=== PATIENT | female | born 1940 | race Caucasian/White ===

== ENCOUNTER 2021-08-18 12:36 | Observation (INO) | payer OTHER, BC ==
[2021-08-18 13:26] LABS: Absolute Lymphocytes (CBC) 0.8 K/uL (0.7-4.9); Basophils % 0.9 % (0-1.3); Hematocrit 36.2 % (36.0-45.0); Lymphocytes % 9.3 % (15.3-44.8); MPV 10.5 fL (7.6-11.3); RBC Red Blood Cell Count 4.24 M/uL (3.86-4.86)
--- NOTE | 2021-08-18 13:38 | RAD REPORT ---
EXAM DESCRIPTION: RAD - Chest Single View - 08/18/2021 1:32 pm CLINICAL HISTORY: CONGESTION Chest pain. COMPARISON: No comparisons FINDINGS: Portable technique limits examination quality. Mild interstitial opacities bilaterally could indicate a viral infection. The heart is normal in size . No displaced fractures.
[2021-08-18 13:43] LABS: Urine Blood 2+ (Negative); Urine Glucose Negative (Negative); Urine Protein 1+ (Negative)
[2021-08-18 13:47] LABS: Albumin 3.1 g/dL (3.4-5.0); Bilirubin Direct 0.4 mg/dL (0-0.2); Bilirubin Total 1.2 mg/dL (0.2-1.0); Potassium 3.6 mmol/L (3.5-5.1); Protein, Total 6.8 g/dL (6.4-8.2); Troponin (Emerg Dept Use Only) 0.04 ng/mL (0.0-0.045)
--- NOTE | 2021-08-18 13:48 | RAD REPORT ---
EXAM DESCRIPTION: CT - Head Brain Wo Cont - 08/18/2021 1:35 pm CLINICAL HISTORY: WEAKNESS Headache, drowsiness COMPARISON: No comparisons TECHNIQUE: All CT scans are performed using dose optimization technique as appropriate and may inclu de automated exposure control or mA/KV adjustment according to patient size. FINDINGS: No intracranial hemorrhage, hydrocephalus or extra-axial fluid collection.Moderate general ized brain atrophy is present with moderate periventricular and deep white matter chronic microvascul ar ischemic changes.No areas of brain edema or evidence of midline shift. Mild thickening of the right maxillary antrum. Paranasal sinuses and mastoids otherwise clear. The ca lvarium is intact. IMPRESSION: No acute intracranial abnormality.
[2021-08-18] MEDS ORDERED: WATER FOR INJ,STERILE 10 ML ONE (14:03)
[2021-08-18] MEDS ORDERED: CEFTRIAXONE 1000 MG/VIAL ONE (14:06)
[2021-08-18] MEDS ORDERED: NA CHLORIDE 0.9% 1,000 ML ONE (14:08)
--- NOTE | 2021-08-18 14:28 | ER ---
Nurse's Notes [facility] Name: Naz Palmer Age: 81 yrs Sex: Female : 1940 Arrival Date: 08/18/2021 Time: 12:37 Bed 16 Private MD: Diagnosis: Acute cystitis;Weakness-generalized weakness, unable to walk Presentation: 08/18 12:42 Chief complaint: Patient states: Fall this morning from standing position. Denies ss injury, but was unable to get up and after hours of trying was finally able to scoot to a phone to call for help. PT reports she just feels generally weak/ fatigue. Coronavirus screen: Client denies travel out of the [place] in the last 14 days. Ebola Screen: Patient denies exposure to infectious person. Patient denies travel to an Ebola-affected area in the 21 days before illness onset. Initial Sepsis Screen: Does the patient meet any 2 criteria? No. Patient's initial sepsis screen is negative. Does the patient have a suspected source of infection? No. Patient's initial sepsis screen is negative. Risk Assessment: Do you want to hurt yourself or someone else? Patient reports no desire to harm self or others. Onset of symptoms was August 18, 2021. 12:42 Acuity: CARLA 3 ss 12:42 Method Of Arrival: EMS: [facility] ss Historical: - Allergies: 12:47 Codeine; ss 12:47 GABAPENTIN; ss - Immunization history:: Client reports receiving the 2nd dose of the Covid vaccine. - Social history:: Smoking status: Patient denies any tobacco usage or history of. Patient/guardian denies using alcohol, street drugs, The patient lives with family. - Family history:: not pertinent. Screenin:29 Fall Risk Fall in past 12 months (25 points). kd3 Assessment: 13:29 Pain: Complains of pain in chest, abdomen, left arm, right leg and back Quality of pain kd3 is described as aching. Neuro: Level of Consciousness is awake, alert, obeys commands, Oriented to person, place, time, situation, Care Attendant are equal bilaterally Moves all extremities. Gait is unsteady, Speech is normal, Facial symmetry appears normal, Pupils are PERRLA, Intact Reports headache weakness. 17:16 Reassessment: Per lexus Alexis for patient to take home medication of 0.5mg of kd3 Clonazapam for restless leg syndrome. nurse practitioner adult Niurka notified. 18:11 Reassessment: Per hai Alexis for patient to take Requip 2x 4mg and a Noco jt3 10mg-325mg tablet. These are the patient's home medications. 19:23 Reassessment: RN to RN report given to [place]. Pt. transported to [facility] by tech [address] . Vital Signs: 12:42 BP 142 / 75; Pulse 75; Resp 16; Temp 98.0(O); Pulse Ox 100% on R/A; Weight 77.11 kg; ss Height 5 ft. 0 in. (152.40 cm); Pain 0/10; 15:38 BP 153 / 64; Pulse 65; Resp 17; Pulse Ox 100% on R/A; kd3 18:11 BP 170 / 88; Pulse 83; Resp 17; Pulse Ox 98% on R/A; jt3 12:42 Body Mass Index 33.20 (77.11 kg, 152.40 cm) ED Course: 12:37 Patient arrived in ED. ds1 12:47 Triage completed. ss 12:47 Jelly Holden MD is Attending Physician. ma2 12:47 Arm band placed on right wrist. ss 12:51 Reymundo Sullivan, CELESTINE is Primary Nurse. jt3 13:29 Bed in low position. Call light in reach. Side rails up X2. kd3 13:29 Inserted saline lock: 20 gauge in right antecubital area, using aseptic technique. kd3 13:32 Chest Single View XRAY In Process Unspecified. EDMS 13:35 CT Head Brain wo Cont In Process Unspecified. EDMS 14:27 Theo Queen DO is Hospitalizing Provider. ma2 Administered Medications: 14:15 Drug: NS 0.9% 1000 ml Route: IV; Rate: 1 bolus; Site: right antecubital; kd3 14:15 Drug: Rocephin (cefTRIAXone) 1 grams Route: IV; Rate: calculated rate; Site: right kd3 antecubital; Output: 17:23 Urine: 100ml (Voided); Total: 100ml. kd3 Outcome: 14:27 Decision to Hospitalize by Provider. ma2 19:28 Admitted to [facility]/surg accompanied by tech, via stretcher. jt3 19:28 Condition: stable 19:28 Instructed on the need for admit. 19:29 Patient left the ED. jt3 Signatures: Dispatcher [employer] Anupama Romo1 Niurka Berry RN RN Jelly Ritter MD MD ma2 Reymundo Sullivan RN RN jt3 Alissa De Leon 3 Corrections: (The following items were deleted from the chart) 12:49 12:42 Method Of Arrival: Ambulatory [facility]
--- NOTE | 2021-08-18 14:28 | EDPHYS ---
Physician Documentation [facility] Name: Naz Palmer Age: 81 yrs Sex: Female : 1940 Arrival Date: 08/18/2021 Time: 12:37 Bed 16 Private MD: ED Physician Jelly Holden HPI: 08/18 13:21 This 81 yrs old Female presents to ER via EMS with complaints of General ma2 Weakness. 13:21 Onset: The symptoms/episode began/occurred gradually, 1 day(s) ago. Severity of ma2 symptoms: At their worst the symptoms were moderate in the emergency department the symptoms are unchanged. The patient has not experienced similar symptoms in the past. Historical: - Allergies: 12:47 Codeine; ss 12:47 GABAPENTIN; ss - Immunization history:: Client reports receiving the 2nd dose of the Covid vaccine. - Social history:: Smoking status: Patient denies any tobacco usage or history of. Patient/guardian denies using alcohol, street drugs, The patient lives with family. - Family history:: not pertinent. ROS: 13:21 Constitutional: Negative for fever, chills, and weight loss. ma2 13:21 All other systems are negative. Exam: 13:21 Constitutional: This is a well developed, well nourished patient who is awake, alert, ma2 and in no acute distress. Head/Face: Normocephalic, atraumatic. Eyes: Pupils equal round and reactive to light, extra-ocular motions intact. Lids and lashes normal. Conjunctiva and sclera are non-icteric and not injected. Cornea within normal limits. Periorbital areas with no swelling, redness, or edema. ENT: Nares patent. No nasal discharge, no septal abnormalities noted. Tympanic membranes are normal and external auditory canals are clear. Oropharynx with no redness, swelling, or masses, exudates, or evidence of obstruction, uvula midline. Mucous membranes moist. Neck: Trachea midline, no thyromegaly or masses palpated, and no cervical lymphadenopathy. Supple, full range of motion without nuchal rigidity, or vertebral point tenderness. No Meningismus. Chest/axilla: Normal chest wall appearance and motion. Nontender with no deformity. No lesions are appreciated. Cardiovascular: Regular rate and rhythm with a normal S1 and S2. No gallops, murmurs, or rubs. Normal PMI, no JVD. No pulse deficits. Respiratory: Lungs have equal breath sounds bilaterally, clear to auscultation and percussion. No rales, rhonchi or wheezes noted. No increased work of breathing, no retractions or nasal flaring. Abdomen/GI: Soft, non-tender, with normal bowel sounds. No distension or tympany. No guarding or rebound. No evidence of tenderness throughout. Back: No spinal tenderness. No costovertebral tenderness. Full range of motion. Skin: Warm, dry with normal turgor. Normal color with no rashes, no lesions, and no evidence of cellulitis. MS/ Extremity: Pulses equal, no cyanosis. Neurovascular intact. Full, normal range of motion. Neuro: Awake and alert, GCS 15, oriented to person, place, time, and situation. Cranial nerves II-XII grossly intact. Motor strength 5/5 in all extremities. Sensory grossly intact. Cerebellar exam normal. Normal gait. Vital Signs: 12:42 BP 142 / 75; Pulse 75; Resp 16; Temp 98.0(O); Pulse Ox 100% on R/A; Weight 77.11 kg; ss Height 5 ft. 0 in. (152.40 cm); Pain 0/10; 15:38 BP 153 / 64; Pulse 65; Resp 17; Pulse Ox 100% on R/A; kd3 18:11 BP 170 / 88; Pulse 83; Resp 17; Pulse Ox 98% on R/A; jt3 12:42 Body Mass Index 33.20 (77.11 kg, 152.40 cm) MDM: 12:50 [facility]. [facility] 13:21 Differential Diagnosis sepsis, flu, uti. ar2 14:26 Data reviewed: vital signs, nurses notes. Counseling: I had a detailed discussion with ma2 the patient and/or guardian regarding: the historical points, exam findings, and any diagnostic results supporting the discharge/admit diagnosis, the presence of at least one elevated blood pressure reading (>120/80) during this emergency department visit, the need for further work-up and treatment in the hospital. Response to treatment: the patient's symptoms have markedly improved after treatment. 08/18 12:49 Order name: Basic Metabolic Panel; Complete Time: 13:49 [facility] 08/18 12:49 Order name: CBC with Diff; Complete Time: 13:49 ar2 08/18 12:49 Order name: Hepatic Function; Complete Time: 13:49 [facility] 08/18 12:49 Order name: Lipase; Complete Time: 13:49 [facility] 08/18 12:49 Order name: Blood Culture Adult (2) [facility] 08/18 12:49 Order name: Troponin (emerg Dept Use Only); Complete Time: 13:49 [facility] 08/18 12:49 Order name: CT Head Brain wo Cont; Complete Time: 14:25 [facility] 08/18 12:49 Order name: Chest Single View XRAY; Complete Time: 13:49 [facility] 08/18 13:28 Order name: COVID-19 (Coronavirus) Document "Date of Onset" if Symptomatic ss 08/18 13:42 Order name: Urine Dipstick-Ancillary; Complete Time: 13:49 [facility] 08/18 14:21 Order name: SARS-COV-2 RT PCR [facility] 08/18 14:26 Order name: Procalcitonin [facility] 08/18 12:49 Order name: IV Saline Lock; Complete Time: 13:35 [facility] 08/18 12:49 Order name: Labs collected and sent; Complete Time: 13:35 [facility] 08/18 12:49 Order name: Urine Dipstick-Ancillary (obtain specimen); Complete Time: 13:58 [facility] 08/18 12:49 Order name: EKG - Nurse/Tech; Complete Time: 13:34 [facility] Administered Medications: 14:15 Drug: NS 0.9% 1000 ml Route: IV; Rate: 1 bolus; Site: right antecubital; kd3 14:15 Drug: Rocephin (cefTRIAXone) 1 grams Route: IV; Rate: calculated rate; Site: right kd3 antecubital; Disposition Summary: 08/18/21 14:27 Hospitalization Ordered Hospitalization Status: Observation ma2 Provider: Theo Queen ma2 Location: Telemetry/MedSurg (observation) ma2 Condition: Stable ma2 Problem: new ma2 Symptoms: are unchanged ma2 Bed/Room Type: Standard [facility] Room Assignment: 201(08/18/21 18:22) bd Diagnosis - Acute cystitis ma2 - Weakness - generalized weakness, unable to walk ma2 Forms: - Medication Reconciliation Form ma2 - SBAR form ma2 Signatures: Dispatcher [employer] EDMS Annamarie Chavez Shelby, RN RN ss Jelly Holden MD MD ar2 Alissa De Leon kd3 Corrections: (The following items were deleted from the chart) 14: 13:29 CORONAVIRUS ordered. EDMS EDMS 18:22 14:27 arMaryjane bd
--- NOTE | 2021-08-18 14:57 | P.HP ---
Certification for Inpatient Patient admitted to: Observation With expected LOS: <2 Midnights Patient will require the following post-hospital care: None Practitioner: I am a practitioner with admitting privileges, knowledge of patient current condition, hospital course, and medical plan of care. Services: Services provided to patient in accordance with Admission requirements found in Title 42 Section 412.3 of the Code of Federal Regulations Patient History Date of Service: 08/18/21 Primary Care Provider: Dr. Ybarra([place], [place]) Reason for admission: Weakness History of Present Illness: 81-year-old female with history of atrial fibrillation on chronic anticoagulation therapy, restless leg syndrome, neuropathy, diabetes mellitus type 2, hypertension, hyperlipidemia, and GERD. Patient [place] the area on [place]. Patient has been fishing. Her activities have been increased recently. She went to the bathroom late last night around midnight. She apparently fell was not able to get up. She crawled around throughout the night. She was able to get in contact with her daughter. She denied any fever, chills, chest pain or shortness of breath. No respiratory issues noted. She came to the ER for further evaluation. In the ER patient was evaluated. Vital signs stable. White count 8.9, hemoglobin 11.8. Platelet count 140, sodium 145, potassium 3.6. BUN of 21, creatinine 0.72 with a GFR 78. Glucose 124. Troponin [address] head unremarkable. Chest x-ray showed possible viral pneumonia. Urinalysis showed some leukoesterase. Patient was admitted for observation. Patient is vaccinated for Covid. Home medications list reviewed: Yes - Past Medical/Surgical History Diabetic: Yes -: Diabetes mellitus type 2 -: Hypertension -: Hyperlipidemia -: Atrial fibrillation on chronic anticoagulation therapy -: Restless leg syndrome -: Diabetic neuropathy -: Chronic pain -: Hysterectomy -: Back surgery -: Knee surgeries Psychosocial/ Personal History: Patient is a . She is currently on vacation. - Family History Family History: Reviewed- Non-Contributory - Social History Smoking Status: Never smoker Alcohol use: Yes CD- Drugs: No Caffeine use: Yes Place of Residence: Home Review of Systems General: Weakness, Malaise, As per HPI Eyes: Unremarkable ENT: Unremarkable Respiratory: Unremarkable Cardiovascular: Unremarkable Gastrointestinal: Unremarkable Genitourinary: Unremarkable Musculoskeletal: As per HPI Integumentary: Unremarkable Neurological: Weakness, As per HPI Lymphatics: Unremarkable Physical Examination - Studies Laboratory Data (last 24 hrs) 08/18/21 13:12: WBC 8.90, Hgb 11.8 L, Hct 36.2, Plt Count 140 L 08/18/21 13:12: Sodium 145, Potassium 3.6, BUN 21 H, Creatinine 0.72, Glucose 124 H, Total Bilirubin 1.2 H, AST 37, ALT 33, Alkaline Phosphatase 53, Lipase 73 Assessment and Plan - Plan COVID: Pending CT head: COMPARISON: No comparisons TECHNIQUE: All CT scans are performed using dose optimization technique as appropriate and may include automated exposure control or mA/KV adjustment according to patient size. FINDINGS: No intracranial hemorrhage, hydrocephalus or extra-axial fluid collection.Moderate generalized brain atrophy is present with moderate periventricular and deep white matter chronic microvascular ischemic changes.No areas of brain edema or evidence of midline shift. Mild thickening of the right maxillary antrum. Paranasal sinuses and mastoids otherwise clear. The calvarium is intact. IMPRESSION: No acute intracranial abnormality. Chest x-ray: COMPARISON: No comparisons FINDINGS: Portable technique limits examination quality. Mild interstitial opacities bilaterally could indicate a viral infection. The heart is normal in size. No displaced fractures. Physical Exam: GENERAL: The patient is a well-developed, well-nourished, in no apparent dist ress. Alert and oriented x3. VITAL SIGNS: Reviewed HEENT: Head is normocephalic and atraumatic. Extraocular muscles are intact. Pupils are equal, round, and reactive to light and accommodation. Nares appeared normal. Mouth is well hydrated and without lesions. Mucous membranes are moist. NECK: Supple. No carotid bruits. No lymphadenopathy or thyromegaly. LUNGS: Clear to auscultation. No crackles or wheezes are heard. HEART: Regular rate and rhythm, no appreciable gallops, rubs, murmurs or extra heart sounds ABDOMEN: Soft, nontender, and nondistended. Positive bowel sounds. No hepatosplenomegaly was noted. EXTREMITIES: Without any cyanosis, clubbing, rash, lesions or peripheral edema. NEUROLOGIC: The patient is oriented to person, place and time. Strength and sensation are grossly intact. Face is symmetric. SKIN: Normal color, turgor and temperature. No ulcerations or rashes noted. Impression: Weakness with fall suspect mild dehydration with possible bilateral viral pneumonia Chronic atrial fibrillation on anticoagulation therapy Hypertension Hyperlipidemia Diabetes mellitus type 2 [id number]-aagsksknw Diabetic neuropathy Restless leg syndrome Chronic pain Plan: Weakness with fall suspect mild dehydration with possible bilateral viral pneumonia: Patient will be admitted for further evaluation and treatment. We will start Rocephin and Zithromax. Maintain oxygen above 93%. Continue IV fluids. Encourage oral intake. Will have physical therapy assess ambulation tomorrow. Will obtain Covid test. Will obtain procalcitonin. Will also check influenza test. Will monitor cardiac enzymes and telemetry. Anticipate improvement over the next 24 hours. Chronic atrial fibrillation on anticoagulation therapy: Continue with home medication amiodarone 200 mg daily and Eliquis 5 mg 1 pill twice daily. Will monitor cardiac enzymes and telemetry. Hypertension: Continue with carvedilol 12.5 mg 1 pill twice daily with parameters in place. Patient also takes olmesartan 10 mg every other day. Hyperlipidemia: Continue with Zetia 10 mg daily and Zocor 40 mg daily Diabetes mellitus type 2 [id number]-swbepcvoc: Will check hemoglobin A1c. Accu-Cheks in place. Sliding scale in place. Continue with Metformin at 1000 mg 1 pill twice daily. Hold Januvia 100 mg daily. Diabetic neuropathy: Continue Lyrica 200 mg 1 pill 3 times a day Restless leg syndrome: Continue Requip 4 mg at bedtime Chronic pain: Continue hydrocodone as needed. Code Status: Full Code DVT prophylaxis: Eliquis Advanced Care Planning-30 minutes: Home at discharge Discharge Plan: Home Plan to discharge in: 24 Hours - Advance Directives Does patient have a Living Will: No Does patient have a Durable POA for Healthcare: No - Code Status/Comfort Care Code Status Assessed: Yes (Full code) Time Spent Managing Pts Care (In Minutes): 55
[2021-08-18] MEDS ORDERED: D5 0.9 NS 1,000 ML IV SCH (19:37)
[2021-08-18] MEDS ORDERED: ACETAMINOPHEN 500 MG TAB PO PRN (19:37)
[2021-08-18] MEDS: INSULIN -REGULAR HUMAN 50 UNIT/0.5 ML ML SQ SCH ×2 (19:37→21:00)
[2021-08-18] MEDS ORDERED: ONDANSETRON 4 MG/2 ML VIAL IV PRN (19:37)
[2021-08-18] MEDS ORDERED: EZETIMIBE 10 MG TAB PO SCH (21:00)
[2021-08-18] MEDS ORDERED: ATORVASTATIN 20 MG TAB PO SCH (21:00)
[2021-08-18] MEDS ORDERED: ROPINIROLE HCL 1 MG TAB PO SCH (21:00)
[2021-08-18 21:08] VITALS: BMI 33.2
[2021-08-18 21:13] LABS: SARS-COV-2 RT PCR NEGATIVE (NEGATIVE)
[2021-08-18 21:25] LABS: Troponin I 0.04 ng/mL (0.0-0.045)
[2021-08-18] MEDS: APIXABAN 5 MG TABLET PO SCH (21:25)
[2021-08-18] MEDS: carvediloL 12.5 MG TAB PO SCH (21:25)
[2021-08-18] MEDS: PREGABALIN 50 MG CAP PO SCH (21:25)
[2021-08-18] MEDS: METFORMIN HCL 500 MG TAB PO SCH (21:25)
[2021-08-19] MEDS: HYDROCODONE/APAP 7.5/325 MG TAB PO PRN ×2 (01:43→09:21)
[2021-08-19 03:46] LABS: CKMB Creatine Kinase MB 4.6 ng/mL (1.0-3.6); Troponin I 0.02 ng/mL (0.0-0.045)
[2021-08-19 03:51] LABS: Absolute Lymphocytes (CBC) 1.1 K/uL (0.7-4.9); Hematocrit 31.2 % (36.0-45.0); Lymphocytes % 17.5 % (15.3-44.8); MPV 10.4 fL (7.6-11.3); RBC Red Blood Cell Count 3.69 M/uL (3.86-4.86)
[2021-08-19 04:05] LABS: BUN Blood Urea Nitrogen 13 mg/dL (7-18); Bicarbonate 28 mmol/L (21-32); Glucose Level 111 mg/dL (74-106); HDL Cholesterol 39 mg/dL (40-60); LDL Cholesterol, Calculated 7 (<130); Potassium 3.6 mmol/L (3.5-5.1); Sodium Level 145 mmol/L (136-145)
[2021-08-19 04:07] LABS: Magnesium 0.9 mg/dL (1.8-2.4)
[2021-08-19] MEDS ORDERED: Magnesium Sulfate 2gm IVPB 2 G/50 ML BAG IV ONE (04:09)
[2021-08-19] MEDS ORDERED: MAGNESIUM SULFATE 1 gm IVPB 1 GM/100 ML BAG IV ONE (05:00)
[2021-08-19] MEDS: carvediloL 12.5 MG TAB PO SCH (05:33)
--- NOTE | 2021-08-19 05:45 | P.PN ---
Subjective Date of Service: 08/19/21 Primary Care Provider: Dr. Ybarra([place], [place]) Chief Complaint: Weakness Physical Examination - Vital Signs Temperature: 98.1 F Blood Pressure: 153/70 Pulse: 61 Respirations: 20 Pulse Ox (%): 96 - Studies Laboratory Data (last 24 hrs) 08/18/21 13:12: WBC 8.90, Hgb 11.8 L, Hct 36.2, Plt Count 140 L 08/18/21 13:12: Sodium 145, Potassium 3.6, BUN 21 H, Creatinine 0.72, Glucose 124 H, Total Bilirubin 1.2 H, AST 37, ALT 33, Alkaline Phosphatase 53, Lipase 73 Assessment & Plan Physician Review Additional Text: COVID: negative Influenza: Negative CT head: COMPARISON: No comparisons TECHNIQUE: All CT scans are performed using dose optimization technique as appropriate and may include automated exposure control or mA/KV adjustment according to patient size. FINDINGS: No intracranial hemorrhage, hydrocephalus or extra-axial fluid collection.Moderate generalized brain atrophy is present with moderate periventricular and deep white matter chronic microvascular ischemic changes.No areas of brain edema or evidence of midline shift. Mild thickening of the right maxillary antrum. Paranasal sinuses and mastoids otherwise clear. The calvarium is intact. IMPRESSION: No acute intracranial abnormality. Chest x-ray: COMPARISON: No comparisons FINDINGS: Portable technique limits examination quality. Mild interstitial opacities bilaterally could indicate a viral infection. The heart is normal in size. No displaced fractures. Physical Exam: GENERAL: The patient is a well-developed, well-nourished, in no apparent distress. Alert and oriented x3. VITAL SIGNS: Reviewed HEENT: Head is normocephalic and atraumatic. Extraocular muscles are intact. Pupils are equal, round, and reactive to light and accommodation. Nares appeared normal. Mouth is well hydrated and without lesions. Mucous membranes are moist. NECK: Supple. No carotid bruits. No lymphadenopathy or thyromegaly. LUNGS: Clear to auscultation. No crackles or wheezes are heard. HEART: Regular rate and rhythm, no appreciable gallops, rubs, murmurs or extra heart sounds ABDOMEN: Soft, nontender, and nondistended. Positive bowel sounds. No hepatosplenomegaly was noted. EXTREMITIES: Without any cyanosis, clubbing, rash, lesions or peripheral edema. NEUROLOGIC: The patient is oriented to person, place and time. Strength and sensation are grossly intact. Face is symmetric. SKIN: Normal color, turgor and temperature. No ulcerations or rashes noted. Impression: Weakness with fall suspect mild dehydration with possible bilateral viral pneumonia Chronic atrial fibrillation on anticoagulation therapy Hypertension Hyperlipidemia Diabetes mellitus type 2 ljq-jhtceoa-hjybsdfuo Diabetic neuropathy Restless leg syndrome Chronic pain Plan: Weakness with fall suspect mild dehydration with possible bilateral viral pn eumonia: Patient will be admitted for further evaluation and treatment. We will start Rocephin and Zithromax. Maintain oxygen above 93%. Continue IV fluids. Encourage oral intake. Will have physical therapy assess ambulation tomorrow. Will obtain Covid test. Will obtain procalcitonin. Will also check influenza test. Will monitor cardiac enzymes and telemetry. Anticipate improvement over the next 24 hours. Chronic atrial fibrillation on anticoagulation therapy: Continue with home medication amiodarone 200 mg daily and Eliquis 5 mg 1 pill twice daily. Will monitor cardiac enzymes and telemetry. Hypertension: Continue with carvedilol 12.5 mg 1 pill twice daily with parameters in place. Patient also takes olmesartan 10 mg every other day. Hyperlipidemia: Continue with Zetia 10 mg daily and Zocor 40 mg daily Diabetes mellitus type 2 lbw-kidqgjw-lxkefjxbt: Will check hemoglobin A1c. Accu-Cheks in place. Sliding scale in place. Continue with Metformin at 1000 mg 1 pill twice daily. Hold Januvia 100 mg daily. Diabetic neuropathy: Continue Lyrica 200 mg 1 pill 3 times a day Restless leg syndrome: Continue Requip 4 mg at bedtime Chronic pain: Continue hydrocodone as needed. Code Status: Full Code DVT prophylaxis: Kyra Advanced Care Planning-30 minutes: Home at discharge Time Spent Managing Pts Care (In Minutes): 55
--- NOTE | 2021-08-19 05:46 | P.DS ---
Admission Date: 08/18/21 Discharge Date: 08/19/21 Primary Care Provider: Dr. Ybarra([place], [place]) Disposition: ROUTINE DISCHARGE Discharge Condition: GOOD Reason for Admission: Weakness Consultations: none Procedures: COVID: negative Influenza: Negative CT head: COMPARISON: No comparisons TECHNIQUE: All CT scans are performed using dose optimization technique as appropriate and may include automated exposure control or mA/KV adjustment according to patient size. FINDINGS: No intracranial hemorrhage, hydrocephalus or extra-axial fluid collection.Moderate generalized brain atrophy is present with moderate periventricular and deep white matter chronic microvascular ischemic changes.No areas of brain edema or evidence of midline shift. Mild thickening of the right maxillary antrum. Paranasal sinuses and mastoids otherwise clear. The calvarium is intact. IMPRESSION: No acute intracranial abnormality. Chest x-ray: COMPARISON: No comparisons FINDINGS: Portable technique limits examination quality. Mild interstitial opacities bilaterally could indicate a viral infection. The heart is normal in size. No displaced fractures. Follow up CXR: COMPARISON: Chest Single View dated 08/18/2021 FINDINGS: Lines: None. Lungs: Mild irregular bilateral airspace of disease . Pleural: No significant pleural effusions or pneumothorax. Cardiac: The heart size is within normal limits. Bones: No acute fractures. Spinal stimulator. Other: Right hilar prominence. IMPRESSION: Similar bilateral airspace opacities may reflect mild pneumonia. Question right hilar adenopathy. Suggest 6 week follow-up chest radiography or chest CT for further evaluation . Medical Problem List: Weakness with fall suspect mild dehydration with possible bilateral viral pneumonia Chronic atrial fibrillation on anticoagulation therapy Hypertension Hyperlipidemia Diabetes mellitus type 2 [id number] Diabetic neuropathy Restless leg syndrome Chronic pain with spinal stenosis Asthma Brief History of Present Illness: 81-year-old female with history of atrial fibrillation on chronic anticoagulation therapy, restless leg syndrome, neuropathy, diabetes mellitus type 2, hypertension, hyperlipidemia, and GERD. Patient is staying at an [employer] [place] in the area on vacation. Patient has been fishing. Her activities have been increased recently. She went to the bathroom late last night around midnight. She apparently fell was not able to get up. She crawled around throughout the night. She was able to get in contact with her daughter. She denied any fever, chills, chest pain or shortness of breath. No respiratory issues noted. She came to the ER for further evaluation. In the ER patient was evaluated. Vital signs stable. White count 8.9, hemoglobin 11.8. Platelet count 140, sodium 145, potassium 3.6. BUN of 21, creatinine 0.72 with a GFR 78. Glucose 124. Troponin [address] head unremarkable. Chest x-ray showed possible viral pneumonia. Urinalysis showed some leukoesterase. Patient was admitted for observation. Patient is vaccinated for Covid. Hospital Course: Patient presented with weakness after a fall. Patient was found to be mildly dehydrated with possible bilateral viral pneumonia. Covid test negative. Influenza test negative. Procalcitonin unremarkable. Patient was admitted for observation. CT head unremarkable. Patient did not require any oxygen. Patient received IV fluids. Her condition improved. Follow-up chest x-ray showed possible right hilar adenopathy. At discharge she is without significant shortness of breath. Physical therapy worked with the patient prior to discharge. At discharge patient will continue with Augmentin 500 mg twice daily for 7 days. Patient will continue with incentive spirometer. Recommend recheck chest x-ray in 2 to 4 weeks to monitor resolution. If adenopathy still noted recommend CT scan. Patient will continue with physical therapy recommendations. Education on fall precautions provided. Recommend follow-up with PCP in 1 week to follow-up his hospitalization. Patient with chronic pain, restless leg syndrome and diabetic neuropathy. Patient also with underlying chronic back pain with spinal stenosis. Physical therapy was consulted for recommendations. Fall precautions in place. At discharge she will continue with her medication including Lyrica 200 mg 1 pill 3 times a day, Requip 4 mg at bedtime, and hydrocodone as directed. Recommend follow-up with her PCP to further monitor and address. Patient with chronic atrial fibrillation on chronic anticoagulation therapy. At discharge she will continue with her medication including amiodarone 200 mg daily and Eliquis 5 mg 1 pill twice daily. Patient with hypertension. At discharge she will continue with her medication including carvedilol 12.5 mg 1 pill twice daily and olmesartan as directed. Recommend to monitor blood pressure daily. Recommend to maintain blood pressure less than 130/80. May need to hold blood pressure medication if blood pressure systolic less than 110. Further adjustment can be done by her PCP. Patient with hyperlipidemia. At discharge we will continue with her combination medication Zetia/Zocor 10/40 mg daily. Patient with diabetes mellitus type 2 [id number]. Hemoglobin A1c 6.1. Diabetes well controlled. Recommend to maintain blood sugar less than 140 fasting and less than 200 after meals. At discharge we will continue with her medications including Metformin at 1000 mg 1 pill twice daily and Januvia 100 mg daily. Recommend to recheck hemoglobin A1c every 3 months to monitor her progress. Recommend follow-up with her PCP to further monitor and address. Patient with history of asthma. At discharge she will continue with her Wixela 1 puff twice daily. Vital Signs/Physical Exam: Temp Pulse Resp BP Pulse Ox 98.1 F 61 20 153/70 H 96 08/19/21 05:45 08/19/21 05:45 08/19/21 05:45 08/19/21 05:45 08/19/21 05:45 General: Alert, In no apparent distress, Oriented x3, Cooperative HEENT: Atraumatic Neck: Supple Respiratory: Clear to auscultation bilaterally, Normal air movement Cardiovascular: Normal pulses, Regular rate/rhythm Gastrointestinal: No tenderness, No masses, No rebound, No guarding Musculoskeletal: No erythema, No tenderness, No warmth Integumentary: No tenderness/swelling, No erythema, No warmth, No cyanosis Neurological: Normal speech, Normal strength at 5/5 x4 extr, Normal tone, Normal affect Laboratory Data at Discharge: WBC 6.10 K/uL (4.3-10.9) D 08/19/21 03:03 Hgb 10.5 g/dL (12.0-15.0) L 08/19/21 03:03 Hct 31.2 % (36.0-45.0) L 08/19/21 03:03 Plt Count 117 K/uL (152-406) L 08/19/21 03:03 Sodium 145 mmol/L (136-145) 08/19/21 03:03 Potassium 3.6 mmol/L (3.5-5.1) 08/19/21 03:03 BUN 13 mg/dL (7-18) 08/19/21 03:03 Creatinine 0.60 mg/dL (0.55-1.3) 08/19/21 03:03 Glucose 111 mg/dL (74-106) H 08/19/21 03:03 Magnesium 0.9 mg/dL (1.8-2.4) L* 08/19/21 03:03 Total Bilirubin 1.2 mg/dL (0.2-1.0) H 08/18/21 13:12 AST 37 U/L (15-37) 08/18/21 13:12 ALT 33 U/L (12-78) 08/18/21 13:12 Alkaline Phosphatase 53 U/L (45-117) 08/18/21 13:12 Troponin I 0.02 ng/mL (0.0-0.045) 08/19/21 03:03 Triglycerides 146 mg/dL (<150) 08/19/21 03:03 Cholesterol 75 mg/dL (<200) 08/19/21 03:03 HDL Cholesterol 39 mg/dL (40-60) L 08/19/21 03:03 Cholesterol/HDL Ratio 1.92 08/19/21 03:03 Lipase 73 U/L (73-393) 08/18/21 13:12 Home Medications: Albuterol Neb [Proventil 0.083% Neb Soln] 2.5 mg IH Q4HP PRN 08/19/21 Amiodarone HCl [Cordarone*] 200 mg PO DAILY 08/19/21 Amoxicillin/Potassium Clav [Augmentin 500-125 Tablet] 1 each PO BID #14 tablet 08/19/21 Apixaban [Eliquis] 5 mg PO BID 08/19/21 Aspirin [Aspirin EC] 81 mg PO DAILY 08/19/21 Calcium Carbonate [Calcium] 500 mg PO DAILY 08/19/21 Cholecalciferol (Vitamin D3) [Vitamin D3] 2,000 unit PO TID 08/19/21 Ciclopirox/Ure/Camph/Menth/Euc [Ciclopirox 8% Treatment Kit] 1 collette TP DAILY 08/19/21 Docusate Sodium [Stool Softener] 100 mg PO BID 08/19/21 Esomeprazole Magnesium 40 mg PO DAILY 08/19/21 Ezetimibe/Simvastatin [Ezetimibe-Simvastatin 10-40 mg] 1 each PO DAILY 08/19/21 Fluticasone Propion/Salmeterol [Wixela 250-50 Inhub] 1 puff IH BID 08/19/21 Ginkgo Biloba 120 mg PO DAILY 08/19/21 Hydrocodone Bit/Acetaminophen [[place] 10-325 Tablet] 1 each PO TID 08/19/21 Iron 18 mg PO DAILY 08/19/21 Loratadine [Claritin*] 10 mg PO DAILY PRN 08/19/21 Metformin HCl 1,000 mg PO BID 08/19/21 Mv-Min/Folic/Vit K/Lut/[id number] [Alive Women's 50 Plus Tablet] 1 each PO DAILY 08/19/21 Nitroglycerin [Nitrostat*] 0.4 mg SL Q5M PRN MDD x3 08/19/21 Nystatin 100,000 unit PO PRN PRN 08/19/21 Olmesartan Medoxomil 0.5 tab PO UD 08/19/21 Pregabalin [Lyrica] 200 mg PO TID 08/19/21 Ropinirole HCl 4 mg PO BID 08/19/21 Sitagliptin Phosphate [Januvia*] 100 mg PO DAILY 08/19/21 Vit A,C & E/Lutein/Minerals [Ocuvite Tablet] 1 tab PO DAILY 08/19/21 Vitamin B Complex [B Complex] 1 each PO DAILY 08/19/21 Zolpidem Tartrate [Ambien*] 5 mg PO BEDTIME PRN 08/19/21 carvediloL [Carvedilol] 12.5 mg PO BID 08/19/21 clonazePAM [Klonopin*] 0.5 mg PO DAILY PRN 08/19/21 New Medications: Amoxicillin/Potassium Clav [Augmentin 500-125 Tablet] 1 each PO BID #14 tablet Physician Discharge Instructions: Patient presented with weakness after a fall. Patient was found to be mildly dehydrated with possible bilateral viral pneumonia. Covid test negative. Influenza test negative. Procalcitonin unremarkable. Patient was admitted for observation. CT head unremarkable. Patient did not require any oxygen. Patient received IV fluids. Her condition improved. Follow-up chest x-ray showed possible right hilar adenopathy. At discharge she is without significant shortness of breath. Physical therapy worked with the patient prior to discharge. At discharge patient will continue with Augmentin 500 mg twice daily for 7 days. Patient will continue with incentive spirometer. Recommend recheck chest x-ray in 2 to 4 weeks to monitor resolution. If adenopathy still noted recommend CT scan. Patient will continue with physical therapy recommendations. Education on fall precautions provided. Recommend follow-up with PCP in 1 week to follow-up his hospitalization. Patient with chronic pain, restless leg syndrome and diabetic neuropathy. Patient also with underlying chronic back pain with spinal stenosis. Physical therapy was consulted for recommendations. Fall precautions in place. At discharge she will continue with her medication including Lyrica 200 mg 1 pill 3 times a day, Requip 4 mg at bedtime, and hydrocodone as directed. Recommend follow-up with her PCP to further monitor and address. Patient with chronic atrial fibrillation on chronic anticoagulation therapy. At discharge she will continue with her medication including amiodarone 200 mg daily and Eliquis 5 mg 1 pill twice daily. Patient with hypertension. At discharge she will continue with her medication including carvedilol 12.5 mg 1 pill twice daily and olmesartan as directed. Recommend to monitor blood pressure daily. Recommend to maintain blood pressure less than 130/80. May need to hold blood pressure medication if blood pressure systolic less than 110. Further adjustment can be done by her PCP. Patient with hyperlipidemia. At discharge we will continue with her combination medication Zetia/Zocor 10/40 mg daily. Patient with diabetes mellitus type 2 [id number]. Hemoglobin A1c 6.1. Diabetes well controlled. Recommend to maintain blood sugar less than 140 fasting and less than 200 after meals. At discharge we will continue with her medications including Metformin at 1000 mg 1 pill twice daily and Januvia 100 mg daily. Recommend to recheck hemoglobin A1c every 3 months to monitor her progress. Recommend follow-up with her PCP to further monitor and address. Patient with history of asthma. At discharge she will continue with her Wixela 1 puff twice daily. Diet: ADA Activity: Fall precautions Followup: [facility] [Primary Care Provider] - Time spent managing pt's care (in minutes): 55
[2021-08-19] MEDS ORDERED: PANTOPRAZOLE 40MG TABLET PO SCH (06:30)
[2021-08-19] MEDS: INSULIN -REGULAR HUMAN 50 UNIT/0.5 ML ML SQ SCH ×2 (07:30→11:30)
[2021-08-19] MEDS: METFORMIN HCL 500 MG TAB PO SCH (08:00)
[2021-08-19 08:43] VITALS: O2SAT 95
[2021-08-19] MEDS ORDERED: CEFTRIAXONE 1,000 MG in NA CHLORIDE 0.9% 50 ML IVPB SCH ×4 (09:00)
[2021-08-19] MEDS ORDERED: AMIODARONE HCL 200 MG TAB PO SCH (09:00)
[2021-08-19] MEDS ORDERED: MULTIVITAMIN TAB PO SCH (09:00)
[2021-08-19] MEDS ORDERED: AZITHROMYCIN 250 MG TAB PO SCH (09:00)
[2021-08-19] MEDS ORDERED: VITAMIN D 1000 UNIT TAB PO SCH (09:00)
[2021-08-19] MEDS ORDERED: KCL 20 MEQ/100 mL IVPB 20 MEQ/100 ML BAG IV SCH (09:00)
[2021-08-19] MEDS: PREGABALIN 50 MG CAP PO SCH (09:21)
[2021-08-19] MEDS: APIXABAN 5 MG TABLET PO SCH (09:21)
--- NOTE | 2021-08-19 09:34 | RAD REPORT ---
EXAM DESCRIPTION: RAD - Chest Single View - 08/19/2021 7:08 am CLINICAL HISTORY: follow up pneumonia COMPARISON: Chest Single View dated 08/18/2021 FINDINGS: Lines: None. Lungs: Mild irregular bilateral airspace of disease . Pleural: No significant pleural effusions or pneumothorax. Cardiac: The heart size is within normal limits. Bones: No acute fractures. Spinal stimulator. Other: Right hilar prominence. IMPRESSION: Similar bilateral airspace opacities may reflect mild pneumonia. Question right hilar ad enopathy. Suggest 6 week follow-up chest radiography or chest CT for further evaluation .
[2021-08-19] MEDS ORDERED: POTASSIUM 25 MEQ EFFERV TAB PO ONE (10:05)
[2021-08-19 11:54] VITALS: BP 98/51; TEMP 97
--- NOTE | 2021-08-20 20:44 | EKG ---
Test Date: 2021-08-18 Test Time: 13:10:22 Bulker: JORGE MEASUREMENT RESULTS: Intervals: Rate: 69 MA: 174 QRSD: 134 QT: 448 QTc: 480 [place]: P: 0 MA: 174 QRS: -16 T: 116 INTERPRETIVE STATEMENTS: Normal sinus rhythm Left bundle branch block Abnormal ECG No previous ECG available for comparison Electronically Signed On 08-20-21 20:35:50 DATE PITTER by Jose Lindsay
== END 2021-08-19 13:06 | disposition home or self-care (01) ==
LOC: ER 12:36 → ERHOLD 14:40 → 2ND 19:22
PROVIDERS: ADMIT Family Medicine; ATTEND Family Medicine
DX: R53.1 Weakness (principal); E86.0 Dehydration; G25.81 Restless legs syndrome; I48.20 Chronic atrial fibrillation, unspecified; G62.9 Polyneuropathy, unspecified; E11.9 Type 2 diabetes mellitus without complications; I10 Essential (primary) hypertension; E78.5 Hyperlipidemia, unspecified; K21.9 Gastro-esophageal reflux disease without esophagitis; G89.29 Other chronic pain; Z79.01 Long term (current) use of anticoagulants; Z20.822 Contact with and (suspected) exposure to COVID-19
CPT/HCPCS: 93005; 87040 ×2; 85025 ×2; 80048 ×2; 36415; 83735 ×2; 82550 ×2; 80061; 82947 ×3; 80076; 84443; 81003; 83036; 84484 ×3; 82553 ×2; 84439; 83690; 84145; 0240U; 70450; 71045 ×2; 97161; 96374; 99285; J3480; J3475 ×2; J7042; J7030; G0378 ×3